=== PATIENT | female | born 1960 | race Two or more races ===

== ENCOUNTER 2018-10-22 19:34 | Emergency (ER) | payer OTHER ==
--- NOTE | 2018-10-22 20:20 | ER Document Report ---
ED Medical Screen (RME) - General Chief Complaint: Syncopy Stated Complaint: POSSIBLE SYNCOPE Time Seen by Provider: 10/22/18 19:49 Mode of Arrival: Ambulatory Information source: Patient Notes: Patient presents to the emergency department post syncope episode. Patient reports she was outside got very hot when inside and passed out hitting her head on the wooden floor. She reports she was out for a few minutes. Laceration to the left side of her head noted. She is unsure when her last tetanus was. After she was awake for approximately an hour she vomited. Patient is visiting from [place]. Speaks primarily Romansh. Martti utilized. Denies past medical history. Reports she has never fainted. Reports she had one banana and a shake today. Denies recent sickness. No other complaints such as chest pain shortness of breath. I have greeted and performed a rapid initial assessment of this patient. A comprehensive ED assessment and evaluation of the patient, analysis of test results and completion of the medical decision making process will be conducted by additional ED providers. Dictation of this chart was performed using voice recognition software; therefore, there may be some unintended grammatical errors. TRAVEL OUTSIDE OF THE [place] IN LAST 30 DAYS: No - Related Data Allergies/Adverse Reactions: Penicillins Allergy (Verified 10/22/18 19:41) Physical Exam - Vital signs Vitals: Temp Pulse Resp BP Pulse Ox 98.5 F 80 16 165/95 H 96 10/22/18 19:57 10/22/18 19:57 10/22/18 19:57 10/22/18 19:57 10/22/18 19:57 Course - Vital Signs Vital signs: Temp Pulse Resp BP Pulse Ox 98.5 F 80 16 165/95 H 96 10/22/18 19:57 10/22/18 19:57 10/22/18 19:57 10/22/18 19:57 10/22/18 19:57
--- NOTE | 2018-10-22 20:49 | RADIOLOGY REPORT (SQ) ---
EXAM DESCRIPTION: CT HEAD WITHOUT IV CONTRAST COMPLETED DATE/TME: 10/22/2018 20:14 CLINICAL HISTORY: fall ,head injury COMPARISON: None Available. TECHNIQUE: Contiguous axial images of the brain were obtained without the administration of intravenous contrast. This exam was performed according to our departmental dose-optimization program, which includes automated exposure control, adjustment of the mA and/or kV according to patient size and/or use of iterative reconstruction technique. FINDINGS: There is no acute intracranial hemorrhage or mass effect. Ventricular system is within normal limits. There is adequate parker-white matter differentiation. There is no skull fracture. The visualized paranasal sinuses and mastoid air cells are within normal limits. IMPRESSION: No acute intracranial abnormalities.
--- NOTE | 2018-10-22 20:54 | RADIOLOGY REPORT (SQ) ---
EXAM DESCRIPTION: CT CERVICAL SPINE WITHOUT IV CONTRAST COMPLETED DATE/TME: 10/22/2018 20:15 CLINICAL HISTORY: fall COMPARISON: None Available TECHNIQUE: Contiguous axial images of the cervical spine were obtained without the administration of intravenous contrast followed by reconstruction images. This exam was performed according to our departmental dose-optimization program, which includes automated exposure control, adjustment of the mA and/or kV according to patient size and/or use of iterative reconstruction technique. FINDINGS: There is no acute fracture or subluxation. Prevertebral soft tissues are within normal limits. IMPRESSION: No acute fracture or subluxation
[2018-10-22 21:04] LABS: ABSOLUTE BASOPHILS # (AUTO) 0.1 10^3/uL (0.0-0.2); ABSOLUTE LYMPHOCYTES (AUTO) 1.6 10^3/uL (0.5-4.7); ABSOLUTE MONOCYTES (AUTO) 0.3 10^3/uL (0.1-1.4); ABSOLUTE NEUT (AUTO) 11.5 10^3/uL (1.7-8.2); BASOPHILS % (AUTO) 0.5 % (0-2); EOSINOPHILS % (AUTO) 0.1 % (0-6); HEMATOCRIT 42.4 % (36.0-47.0); HEMOGLOBIN 14.1 g/dL (12.0-15.5); LYMPHOCYTES % (AUTO) 12.2 % (13-45); MEAN CORPUSCULAR HEMOGLOBIN 29.3 pg (27.0-33.4); MEAN CORPUSCULAR HGB CONC 33.2 g/dL (32.0-36.0); MEAN CORPUSCULAR VOLUME 88 fl (80-97); MONOCYTES % (AUTO) 2.5 % (3-13); PLATELET COUNT 296 10^3/uL (150-450); RED BLOOD COUNT 4.82 10^6/uL (3.72-5.28); RED CELL DISTRIBUTION WIDTH 13.7 % (11.5-14.0); SEGMENTED NEUTROPHILS % (AUTO) 84.7 % (42-78); TOTAL CELLS COUNTED % (AUTO) 100 %; WHITE BLOOD COUNT 13.5 10^3/uL (4.0-10.5)
[2018-10-22 21:05] LABS: APPEARANCE,URINE CLEAR; BILIRUBIN,URINE NEGATIVE (NEGATIVE); COLOR,URINE YELLOW; GLUCOSE, URINE NEGATIVE (NEGATIVE); KETONES,URINE NEGATIVE (NEGATIVE); LEUKOCYTE ESTERASE,URINE NEGATIVE (NEGATIVE); NITRITE,URINE NEGATIVE (NEGATIVE); PROTEIN,URINE NEGATIVE (NEGATIVE); URINE SPECIFIC GRAVITY 1.013; UROBILINOGEN,URINE NEGATIVE mg/dL (<2.0)
[2018-10-22 21:19] LABS: ALANINE AMINOTRANSFERASE 26 U/L (9-52); ALBUMIN 5.1 g/dL (3.5-5.0); ALKALINE PHOSPHATASE 81 U/L (38-126); ANION GAP 12 (5-19); ASPARTATE AMINO TRANSFERASE 30 U/L (14-36); BILIRUBIN,DIRECT 0.2 mg/dL (0.0-0.4); BILIRUBIN,TOTAL 0.5 mg/dL (0.2-1.3); BLOOD UREA NITROGEN 12 mg/dL (7-20); CALCIUM 10.3 mg/dL (8.4-10.2); CARBON DIOXIDE 26 mmol/L (22-30); CHLORIDE 103 mmol/L (98-107); GLUCOSE 126 mg/dL (75-110); POTASSIUM 4.2 mmol/L (3.6-5.0); SODIUM 141.4 mmol/L (137-145); TOTAL PROTEIN 8.7 g/dL (6.3-8.2)
[2018-10-22] MEDS ORDERED: LIDOCAINE 1%/EPINEPHRINE INJ 20 ML VIAL INJ ONE (22:15)
[2018-10-22] MEDS ORDERED: HYDROCODONE/ACETAMINOPHEN 5-325 MG TABLET PO ONE (22:18)
[2018-10-22] MEDS ORDERED: ONDANSETRON 4 MG TAB.RAPDIS PO ONE (22:18)
--- NOTE | 2018-10-22 22:21 | ER Document Report ---
ED General - General Chief Complaint: Syncopy Stated Complaint: POSSIBLE SYNCOPE Time Seen by Provider: 10/22/18 19:49 Mode of Arrival: Ambulatory Notes: Patient is a 57-year-old female that comes to the emergency department for chief complaint of a wound to the left side of her head/scalp that is bleeding, she states that she was outside cutting the grass, she states she started sweating profusely, she states that she walked inside to try to cool off, her vision became blurry, she passed out and hit her head. She denies chest pain, palpitations, shortness of breath, nausea/vomiting. She reports a mild headache now. She denies alcohol. She does not take any daily medications. She denies any past medical history. Family is with her at bedside. Tetanus up-to-date within 4 years. TRAVEL OUTSIDE OF THE [place] IN LAST 30 DAYS: No - Related Data Allergies/Adverse Reactions: Penicillins Allergy (Verified 10/22/18 19:41) Past Medical History - General Information source: Patient - Social History Smoking Status: Never Smoker Chew tobacco use (# tins/day): No Frequency of alcohol use: None Drug Abuse: None Lives with: Family Family History: Reviewed & Not Pertinent Patient has suicidal ideation: No Patient has homicidal ideation: No Renal/ Medical History: Denies: Hx Peritoneal Dialysis - Immunizations Immunizations up to date: Yes Hx Diphtheria, Pertussis, Tetanus Vaccination: Yes Review of Systems - Review of Systems Constitutional: No symptoms reported EENT: No symptoms reported Cardiovascular: See HPI Respiratory: No symptoms reported Gastrointestinal: No symptoms reported Genitourinary: No symptoms reported Female Genitourinary: No symptoms reported Musculoskeletal: See HPI Skin: See HPI Hematologic/Lymphatic: No symptoms reported Neurological/Psychological: See HPI Physical Exam - Vital signs Vitals: Temp Pulse Resp BP Pulse Ox 98.5 F 80 16 165/95 H 96 10/22/18 19:57 10/22/18 19:57 10/22/18 19:57 10/22/18 19:57 10/22/18 19:57 - Notes Notes: GENERAL: Alert, interacts well. No acute distress. HEAD: Normocephalic. 2.5 cm irregular laceration over the left lateral scalp over the temporal area. Otherwise no traumatic findings. No swelling. EYES: Pupils equal, round, and reactive to light. Extraocular movements intact. ENT: Oral mucosa moist, tongue midline. Oropharynx unremarkable. Airway patent. Nares patent, no nasal septal hematoma, TM's intact. NECK: Full range of motion. Supple. Trachea midline. LUNGS: Clear to auscultation bilaterally, no wheezes, rales, or rhonchi. No respiratory distress. HEART: Regular rate and rhythm. No murmur ABDOMEN: Soft, non-tender. Non-distended. Bowel sounds present in all 4 quadrants. GENITOURINARY: Deferred EXTREMITIES: Moves all 4 extremities spontaneously. No edema, normal radial and dorsalis pedis pulses bilaterally. No cyanosis. BACK: no cervical, thoracic, lumbar midline tenderness. No saddle anesthesia, normal distal neurovascular exam. Moves all extremities in full range of motion. NEUROLOGICAL: Alert and oriented x3. Normal speech. Cranial nerves II through XII grossly intact. PSYCH: Normal affect, normal mood. SKIN: Warm, dry, normal turgor. No rashes or lesions noted. Course - Re-evaluation Re-evalutation: EKG shows sinus rhythm at a rate of 78, QTC of 429, AR interval of 172. Normal axis. No T wave inversions or ST segment changes in consecutive leads. I did review the CAT scan of the head and neck which was performed in triage, these are normal. CBC shows mild leukocytosis which is nonspecific given patient's reported symptoms and her physical examination. Chemistry nonspecific. Urinalysis unremarkable. I discussed with patient in detail her work-up, I discussed possibility of running troponins as well because of her syncopal episode, however she did not have chest pain, palpitations, she only has a headache, and after discussion this was declined. I feel this is appropriate. Patient has a very good story for likely vasovagal syncope. The wound will be cleaned, repaired with jose r, she will be provided with precautions and referral. Discussion with patient family performed using [employer] weatherization technician system because patient mainly speaks Armenian. - Vital Signs Vital signs: Temp Pulse Resp BP Pulse Ox 98.1 F 62 16 171/100 H 97 10/22/18 23:41 10/22/18 23:41 10/22/18 23:41 10/22/18 23:41 10/22/18 23:41 - Laboratory Result Diagrams: 10/22/18 20:44 10/22/18 20:44 Laboratory results interpreted by me: 10/22/18 10/22/18 20:44 20:44 WBC 13.5 H Seg Neutrophils % 84.7 H Lymphocytes % 12.2 L Monocytes % 2.5 L Absolute Neutrophils 11.5 H Glucose 126 H Calcium 10.3 H Total Protein 8.7 H Albumin 5.1 H Procedures - Laceration/Wound Repair left lateral scalp Wound length (cm): 2.5 Wound's Depth, Shape: Irregular Laceration pre-procedure: Sterile PPE donned, Sterile drapes applied, Shur-Clens applied Anesthetic type: 1% Lidocaine w/epi Volume Anesthetic (mLs): 6 Wound explored: Clean, No foreign body removed Wound Repaired With: [place] Number of Sutures: 5 - jose r Post-procedure NV exam normal: Yes Complications: No Discharge - Discharge Clinical Impression: Episode of syncope Qualifiers: Syncope type: unspecified Qualified Code(s): R55 - Syncope and collapse Scalp laceration Qualifiers: Encounter type: initial encounter Qualified Code(s): S01.01XA - Laceration without foreign body of scalp, initial encounter Condition: Stable Disposition: HOME, SELF-CARE Additional Instructions: Las grapas deben salir en aproximadamente 7 daniel. Shubert tiene que suceder en leon instalacin mdica. Mantenga el chandrika limpia con agua y jabn. Puedes ducharte riley no empapar la poonam. Tus pruebas se alexei zhanna esta noche. Dwayne un seguimiento con la referencia de la oficina de [employer] [facility] para obtener atencin adicional leon vez que se haya desmayado. Puede karina Tylenol o ibuprofeno para el dolor. Vuelva si est peor (dolor de hali intenso, vmitos, confusin o si algo no est zhanna). Forms: Return to Work, Elevated Blood Pressure
[2018-10-22 23:43] VITALS: BP 171/100
--- NOTE | 2018-10-23 00:24 | EKG REPORT ---
SEVERITY:- BORDERLINE ECG - SINUS RHYTHM BORDERLINE T ABNORMALITIES, DIFFUSE LEADS : Confirmed by: Yanelis Delarosa 23-Oct-2018 00:22:55
== END 2018-10-22 23:47 | disposition home or self-care (01) ==
LOC: ER 19:34
PROC: 0HQ0XZZ Repair Scalp Skin, External Approach (ICD-10-PCS; principal; 2018-10-22)
DX: S01.01XA Laceration without foreign body of scalp, initial encounter (principal); R55 Syncope and collapse; W22.8XXA Striking against or struck by other objects, initial encounter
CPT/HCPCS: 93005; 99284; 36415; 85025; 80053; 81001; 70450; 72125; 93010; 12001; S0119; J3490